=== PATIENT | female | born 1960 ===

== ENCOUNTER 2022-01-31 16:39 | Emergency (ER) | payer OTHER ==
[~2022-01-31] VITALS: Ht 167.6 cm; Wt 61.2 kg
== END 2022-01-31 23:12 | disposition home or self-care (01) ==
LOC: ER 16:39
DX: K59.00 Constipation, unspecified (principal); Z88.8 Allergy status to other drugs, medicaments and biological substances; I10 Essential (primary) hypertension; R10.32 Left lower quadrant pain